=== PATIENT | male | born 1980 | race Caucasian/White ===

== ENCOUNTER 2017-03-17 18:32 | Emergency (ER) | payer OTHER ==
[~2017-03-17] VITALS: Ht 190.5 cm; Wt 123.8 kg
[~2017-03-17 18:32] MED LIST: Acetaminophen-1 EAC1 PO; CYCL10 PO; DIAZ5 PO; HYDACE10B PO; HYDACE5 PO; HYDMOR2 PO; IBUP600 PO; IBUP800 PO; MELO7.5 PO; METPRE4DP PO; NAPR220 PO; NAPR500 PO; NAPR500ERA PO; Naprosyn500 MG PO; OXYACE5T PO; PERM5TC TOP; PRED10 PO; RXOXYACE PO; Robaxin-750750 MG PO; TRAM50 PO; Ultram50 MG PO
[2017-03-17 19:18] LABS: BASOPHILS ABSOLUTE AUTO 0.06 K/mm3 (0.00-0.23); BASOPHILS PERCENT AUTO 1 % (0-2); EOSINOPHILS ABSOLUTE AUTO 0.16 K/mm3 (0.00-0.68); EOSINOPHILS PERCENT AUTO 2 % (0-6); Hematocrit 52.5 % (37.0-53.0); Hemoglobin 18.8 g/dL (13.5-17.5); IMMATURE GRAN ABSOLUTE AUTO 0.01 K/mm3 (0.00-0.10); IMMATURE GRAN PERCENT AUTO 0 % (0-1); LYMPHOCYTES ABSOLUTE AUTO 1.99 K/mm3 (0.84-5.20); LYMPHOCYTES PERCENT AUTO 23 % (21-46); MONOCYTES ABSOLUTE AUTO 0.71 K/mm3 (0.16-1.47); MONOCYTES PERCENT AUTO 8 % (4-13); Mean Corpuscular HGB Conc 35.8 g/dL (31.5-36.5); Mean Corpuscular Volume 89 fL (80-100); Mean Platelet Volume 10.1 fL (9.1-12.4); NEUTROPHILS ABSOLUTE AUTO 5.62 K/mm3 (1.96-9.15); NEUTROPHILS PERCENT AUTO 66 % (41-73); Platelet Count 193 K/mm3 (150-400); RDW Coefficient Variation 12.4 % (11.7-14.2); RDW Standard Deviation 40.5 fL (35.1-46.3); Red Blood Cell Count 5.88 M/mm3 (4.30-5.90); White Blood Cell Count 8.55 K/mm3 (4.00-11.30)
[2017-03-17 19:21] LABS: Alanine Aminotransfer (ALT/SGP 37 U/L (12-78); Albumin, Blood 4.3 g/dL (3.4-5.0); Albumin/Globulin Ratio 1.2 (0.8-1.8); Alk Phos 95 U/L (50-136); Anion Gap 7 mmol/L (6-16); Aspartate Aminotrans (AST/SGOT 29 U/L (12-37); Bilirubin, Total 1.3 mg/dL (0.1-1.0); Blood Urea Nitrogen 9 mg/dL (8-24); Bun/Creatinine Ratio 9.4 (12.0-20.0); CO2, Blood 26 mmol/L (21-32); Chloride, Blood 107 mmol/L (98-108); Creatinine, Blood 0.96 mg/dL (0.60-1.20); Globulin, Blood 3.6 g/dL (2.2-4.0); Glomerular Filtration Rate >60 (60-); Glucose, Blood 92 mg/dL (70-99); Potassium, Blood 3.6 mmol/L (3.5-5.5); Sodium, Blood 140 mmol/L (136-145); Total Protein, Blood 7.9 g/dL (6.4-8.2)
[2017-03-17 19:51] LABS: Source, Urine Clean Catch
[2017-03-17 19:54] LABS: Bilirubin, Urine Neg (Neg); Blood, Urine Neg (Neg); Glucose Qualitative, Urine Neg (Neg); Ketones, Urine Neg (Neg); Leukocyte Esterase, Urine 1+ (Neg); Nitrite, Urine Neg (Neg); Protein, Urine Neg (Neg); Urobilinogen, Urine NORM (Normal)
[2017-03-17 20:29] LABS: Appearance, Urine Clear (Clear); Color, Urine Yellow (P-Yellow)
[2017-03-17 20:30] LABS: Bacteria Rare /hpf; Red Blood Cells, Urine Not Seen /hpf (0-2); Squamous Epithelial Cells Rare /hpf (Few); White Blood Cells, Urine 0-2 /hpf (0-5)
[2017-03-17] MEDS ORDERED: PROM25 PO (20:43)
[2017-03-17] MEDS ORDERED: CHLO5 PO (20:43)
[2018-01-07] MEDS ORDERED: NAPR220 PO (08:32)
[2018-01-07] MEDS ORDERED: CYCL10 PO (08:32)
[2018-01-07] MEDS ORDERED: Aspirin EC81 MG PO (10:55)
[2018-01-18] MEDS ORDERED: LIDO700A20 TOP (16:51)
[2018-01-18] MEDS ORDERED: KETO10 PO (16:51)
[2018-01-26] MEDS ORDERED: Percocet 5-3251 EACH PO (10:27)
[2018-02-04] MEDS ORDERED: Ultram50 MG PO (18:54)
[2018-02-04] MEDS ORDERED: Robaxin500 MG PO (18:54)
[2018-02-21] MEDS ORDERED: HYDR1TAB94 PO (17:27)
== END 2017-03-17 21:20 | disposition home or self-care (01) ==
LOC: ER 18:32
PROVIDERS: Physician Assistant
DX: R10.31 Right lower quadrant pain (principal); F10.239 Alcohol dependence with withdrawal, unspecified; Z88.0 Allergy status to penicillin; F17.200 Nicotine dependence, unspecified, uncomplicated
CPT/HCPCS: 36415; 74177; 80053; 81001; 83690; 85025; 87086; 96374; 96375; 99284; J1885; J2060; Q9967

== ENCOUNTER → 2017-06-21 | Outpatient (CLI) | payer OTHER ==
[~2017-06-21] MED LIST changes: +CHLO5 PO; +PROM25 PO
[2017-06-21 13:36] LABS: BASOPHILS ABSOLUTE AUTO 0.08 K/mm3 (0.00-0.23); BASOPHILS PERCENT AUTO 1 % (0-2); EOSINOPHILS ABSOLUTE AUTO 0.18 K/mm3 (0.00-0.68); EOSINOPHILS PERCENT AUTO 2 % (0-6); Hematocrit 50.6 % (37.0-53.0); Hemoglobin 18.1 g/dL (13.5-17.5); IMMATURE GRAN ABSOLUTE AUTO 0.02 K/mm3 (0.00-0.10); IMMATURE GRAN PERCENT AUTO 0 % (0-1); LYMPHOCYTES ABSOLUTE AUTO 1.96 K/mm3 (0.84-5.20); LYMPHOCYTES PERCENT AUTO 25 % (21-46); MONOCYTES ABSOLUTE AUTO 0.55 K/mm3 (0.16-1.47); MONOCYTES PERCENT AUTO 7 % (4-13); Mean Corpuscular HGB 30.6 pg (26.0-34.0); Mean Corpuscular HGB Conc 35.8 g/dL (31.5-36.5); Mean Corpuscular Volume 86 fL (80-100); Mean Platelet Volume 10.1 fL (9.1-12.4); NEUTROPHILS ABSOLUTE AUTO 5.09 K/mm3 (1.96-9.15); NEUTROPHILS PERCENT AUTO 65 % (41-73); Platelet Count 234 K/mm3 (150-400); RDW Coefficient Variation 12.3 % (11.7-14.2); RDW Standard Deviation 37.8 fL (35.1-46.3); Red Blood Cell Count 5.92 M/mm3 (4.30-5.90); White Blood Cell Count 7.88 K/mm3 (4.00-11.30)
[2017-06-21 13:48] LABS: Alanine Aminotransfer (ALT/SGP 29 U/L (12-78); Albumin, Blood 4.3 g/dL (3.4-5.0); Albumin/Globulin Ratio 1.3 (0.8-1.8); Alk Phos 89 U/L (40-126); Anion Gap 8 mmol/L (6-16); Aspartate Aminotrans (AST/SGOT 14 U/L (12-37); Bilirubin, Total 0.7 mg/dL (0.1-1.0); Blood Urea Nitrogen 10 mg/dL (8-24); Bun/Creatinine Ratio 10.4 (12.0-20.0); CO2, Blood 27 mmol/L (21-32); Calcium, Blood 9.2 mg/dL (8.5-10.1); Chloride, Blood 103 mmol/L (98-108); Creatinine, Blood 0.96 mg/dL (0.60-1.20); Globulin, Blood 3.4 g/dL (2.2-4.0); Glomerular Filtration Rate >60 (60-); Glucose, Blood 88 mg/dL (70-99); Potassium, Blood 3.9 mmol/L (3.5-5.5); Sodium, Blood 138 mmol/L (136-145); Total Protein, Blood 7.7 g/dL (6.4-8.2); Troponin I <0.017 ng/mL (0.000-0.040)
== END | disposition home or self-care (01) ==
LOC: LAB SHORT 13:29 → LAB EV 13:29
PROVIDERS: Physician Assistant
DX: R07.9 Chest pain, unspecified (principal)
CPT/HCPCS: 80053; 84484; 85025; 85379

== ENCOUNTER 2017-08-15 21:14 | Emergency (ER) | payer OTHER ==
[~2017-08-15] VITALS: Ht 190.5 cm; Wt 122.5 kg
[2017-08-15] MEDS ORDERED: TRAZ150T57 PO (21:29)
[2017-08-15] MEDS ORDERED: IBUP800 PO (22:29)
[2017-08-15] MEDS ORDERED: Ultram50 MG PO (22:29)
== END 2017-08-15 22:38 | disposition home or self-care (01) ==
LOC: ER 21:14
DX: S91.311A Laceration without foreign body, right foot, initial encounter (principal); F17.200 Nicotine dependence, unspecified, uncomplicated; Z88.0 Allergy status to penicillin; W26.8XXA Contact with other sharp object(s), not elsewhere classified, initial encounter; Y93.01 Activity, walking, marching and hiking; Y92.828 Other wilderness area as the place of occurrence of the external cause
CPT/HCPCS: 99282

== ENCOUNTER → 2017-11-29 | Outpatient (CLI) | payer OTHER ==
[~2017-11-29] MED LIST changes: +TRAZ150T57 PO
[2017-11-29 08:51] LABS: BASOPHILS ABSOLUTE AUTO 0.07 K/mm3 (0.00-0.23); BASOPHILS PERCENT AUTO 1 % (0-2); EOSINOPHILS ABSOLUTE AUTO 0.23 K/mm3 (0.00-0.68); EOSINOPHILS PERCENT AUTO 3 % (0-6); Hematocrit 48.1 % (37.0-53.0); IMMATURE GRAN ABSOLUTE AUTO 0.03 K/mm3 (0.00-0.10); IMMATURE GRAN PERCENT AUTO 0 % (0-1); LYMPHOCYTES ABSOLUTE AUTO 1.63 K/mm3 (0.84-5.20); LYMPHOCYTES PERCENT AUTO 19 % (21-46); MONOCYTES ABSOLUTE AUTO 0.68 K/mm3 (0.16-1.47); MONOCYTES PERCENT AUTO 8 % (4-13); Mean Corpuscular HGB 30.3 pg (26.0-34.0); Mean Corpuscular HGB Conc 35.3 g/dL (31.5-36.5); Mean Corpuscular Volume 86 fL (80-100); Mean Platelet Volume 10.2 fL (9.1-12.4); NEUTROPHILS ABSOLUTE AUTO 6.12 K/mm3 (1.96-9.15); NEUTROPHILS PERCENT AUTO 70 % (41-73); Platelet Count 203 K/mm3 (150-400); Red Blood Cell Count 5.61 M/mm3 (4.30-5.90); White Blood Cell Count 8.76 K/mm3 (4.00-11.30)
[2017-11-29 09:07] LABS: Alanine Aminotransfer (ALT/SGP 20 U/L (12-78); Albumin/Globulin Ratio 1.3 (0.8-1.8); Alk Phos 86 U/L (40-126); Anion Gap 10 mmol/L (6-16); Aspartate Aminotrans (AST/SGOT 14 U/L (12-37); Blood Urea Nitrogen 13 mg/dL (8-24); Bun/Creatinine Ratio 11.7 (12.0-20.0); CO2, Blood 25 mmol/L (21-32); Chloride, Blood 105 mmol/L (98-108); Creatinine, Blood 1.11 mg/dL (0.60-1.20); Globulin, Blood 3.1 g/dL (2.2-4.0); Glomerular Filtration Rate >60 (60-); Glucose, Blood 81 mg/dL (70-99); Potassium, Blood 3.4 mmol/L (3.5-5.5); Sodium, Blood 140 mmol/L (136-145); Total Protein, Blood 7.1 g/dL (6.4-8.2)
== END | disposition home or self-care (01) ==
LOC: LAB EV 08:47 → LAB SHORT 08:47
PROVIDERS: Physician Assistant Medical
DX: R11.2 Nausea with vomiting, unspecified (principal)
CPT/HCPCS: 80053; 85025

== ENCOUNTER 2017-12-13 11:22 | Emergency (ER) | payer OTHER ==
[~2017-12-13] VITALS: Ht 190.5 cm; Wt 115.7 kg
[2017-12-13 12:04] LABS: BASOPHILS ABSOLUTE AUTO 0.08 K/mm3 (0.00-0.23); BASOPHILS PERCENT AUTO 1 % (0-2); EOSINOPHILS ABSOLUTE AUTO 0.14 K/mm3 (0.00-0.68); EOSINOPHILS PERCENT AUTO 1 % (0-6); Hematocrit 49.7 % (37.0-53.0); Hemoglobin 17.3 g/dL (13.5-17.5); IMMATURE GRAN ABSOLUTE AUTO 0.02 K/mm3 (0.00-0.10); IMMATURE GRAN PERCENT AUTO 0 % (0-1); LYMPHOCYTES PERCENT AUTO 19 % (21-46); MONOCYTES ABSOLUTE AUTO 0.62 K/mm3 (0.16-1.47); MONOCYTES PERCENT AUTO 6 % (4-13); Mean Corpuscular HGB 30.1 pg (26.0-34.0); Mean Corpuscular HGB Conc 34.8 g/dL (31.5-36.5); Mean Corpuscular Volume 86 fL (80-100); Mean Platelet Volume 9.5 fL (9.1-12.4); NEUTROPHILS ABSOLUTE AUTO 7.44 K/mm3 (1.96-9.15); NEUTROPHILS PERCENT AUTO 73 % (41-73); Platelet Count 252 K/mm3 (150-400); RDW Coefficient Variation 12.8 % (11.7-14.2); RDW Standard Deviation 39.7 fL (35.1-46.3); Red Blood Cell Count 5.75 M/mm3 (4.30-5.90)
[2017-12-13 12:26] LABS: Alanine Aminotransfer (ALT/SGP 22 U/L (12-78); Albumin, Blood 3.9 g/dL (3.4-5.0); Albumin/Globulin Ratio 1.3 (0.8-1.8); Alk Phos 85 U/L (50-136); Anion Gap 8 mmol/L (6-16); Aspartate Aminotrans (AST/SGOT 9 U/L (12-37); Blood Urea Nitrogen 7 mg/dL (8-24); Bun/Creatinine Ratio 6.2 (12.0-20.0); CO2, Blood 24 mmol/L (21-32); Calcium, Blood 8.8 mg/dL (8.5-10.1); Chloride, Blood 108 mmol/L (98-108); Creatinine, Blood 1.12 mg/dL (0.60-1.20); Globulin, Blood 3.1 g/dL (2.2-4.0); Glomerular Filtration Rate >60 (60-); Glucose, Blood 55 mg/dL (70-99); Potassium, Blood 3.4 mmol/L (3.5-5.5); Sodium, Blood 140 mmol/L (136-145); Troponin I <0.015 ng/mL (0.000-0.040)
[2017-12-13 12:32] LABS: International Normalized Ratio 1.09; Prothrombin Time Results 11.2 Sec (9.7-11.5)
[2017-12-13] MEDS ORDERED: IBUP800 PO (12:55)
[2017-12-13] MEDS ORDERED: Robaxin500 MG PO (12:55)
== END 2017-12-13 13:29 | disposition home or self-care (01) ==
LOC: ER 11:22
PROVIDERS: Physician Assistant
DX: R07.89 Other chest pain (principal); F17.210 Nicotine dependence, cigarettes, uncomplicated
CPT/HCPCS: 71046; 80053; 83690; 84484; 85025; 85379; 85610; 93005; 93010; 96374; 99284-25; J2270

== ENCOUNTER → 2018-03-01 | Outpatient (CLI) | payer OTHER ==
[~2018-03-01] MED LIST changes: +Aspirin EC81 MG PO; +HYDR1TAB94 PO; +KETO10 PO; +LIDO700A20 TOP; +Percocet 5-3251 EACH PO; +Robaxin500 MG PO
[2018-03-01 19:38] LABS: Blood Urea Nitrogen 9 mg/dL (8-24); Creatinine, Blood 0.93 mg/dL (0.60-1.20); Glomerular Filtration Rate >60 (60-)
== END | disposition home or self-care (01) ==
LOC: LAB 17:57 → LAB SHORT 17:57
DX: M62.830 Muscle spasm of back (principal)
CPT/HCPCS: 82565; 84520

== ENCOUNTER 2018-03-08 18:12 | Emergency (ER) | payer OTHER ==
[~2018-03-08] VITALS: Ht 190.5 cm; Wt 114.8 kg
== END 2018-03-08 20:02 | disposition home or self-care (01) ==
LOC: ER 18:12
DX: M51.36 Other intervertebral disc degeneration, lumbar region (principal); M50.30 Other cervical disc degeneration, unspecified cervical region; F17.210 Nicotine dependence, cigarettes, uncomplicated; Z88.0 Allergy status to penicillin
CPT/HCPCS: 96372; 99283-25; J1170; J1885

== ENCOUNTER 2018-04-08 16:45 | Emergency (ER) | payer OTHER ==
[~2018-04-08] VITALS: Ht 190.5 cm; Wt 117.9 kg
[2018-04-08] MEDS ORDERED: Norco 5-325 Ta1 EACH PO (17:11)
== END 2018-04-08 17:28 | disposition home or self-care (01) ==
LOC: ER 16:45
DX: G89.29 Other chronic pain (principal); M54.5 Low back pain; Z88.0 Allergy status to penicillin; Z79.899 Other long term (current) drug therapy; F17.210 Nicotine dependence, cigarettes, uncomplicated
CPT/HCPCS: 99281

== ENCOUNTER 2018-09-18 00:33 | Emergency (ER) | payer OTHER ==
[~2018-09-18] VITALS: Ht 190.5 cm; Wt 122.5 kg
[~2018-09-18 00:33] MED LIST changes: +Norco 5-325 Ta1 EACH PO
[2018-09-18] MEDS ORDERED: PARO10 PO (01:00)
[2018-09-18 01:02] LABS: Source, Urine Clean Catch
[2018-09-18] MEDS ORDERED: AMLO10 PO (01:02)
[2018-09-18 01:05] LABS: Bilirubin, Urine Neg (Neg); Blood, Urine Neg (Neg); Glucose Qualitative, Urine Neg (Neg); Ketones, Urine Neg (Neg); Leukocyte Esterase, Urine Neg (Neg); Nitrite, Urine Neg (Neg); Protein, Urine Neg (Neg); Specific Gravity, Urine 1.005 (1.003-1.022); Urobilinogen, Urine NORM (Normal)
[2018-09-18 01:06] LABS: Appearance, Urine Clear (Clear); Color, Urine Yellow (P-Yellow)
== END 2018-09-18 01:48 | disposition home or self-care (01) ==
LOC: ER 00:33
PROVIDERS: Physician Assistant
DX: R30.0 Dysuria (principal); Z88.0 Allergy status to penicillin; Z79.899 Other long term (current) drug therapy; F17.210 Nicotine dependence, cigarettes, uncomplicated
CPT/HCPCS: 81003; 99283

== ENCOUNTER 2019-01-30 05:42 | Emergency (ER) | payer OTHER ==
[~2019-01-30] VITALS: Ht 190.5 cm; Wt 117.9 kg
[~2019-01-30 05:42] MED LIST changes: +AMLO10 PO; +PARO10 PO
== END 2019-01-30 06:42 | disposition home or self-care (01) ==
LOC: ER 05:42
DX: A08.4 Viral intestinal infection, unspecified (principal); F17.210 Nicotine dependence, cigarettes, uncomplicated; Z88.0 Allergy status to penicillin; Z79.899 Other long term (current) drug therapy
CPT/HCPCS: 99282

== ENCOUNTER 2019-08-09 10:26 | Inpatient (IN) | payer OTHER ==
[~2019-08-09] VITALS: Ht 297.2 cm; Wt 127.5 kg
[2019-08-09 11:43] LABS: BASOPHILS ABSOLUTE AUTO 0.08 K/mm3 (0.00-0.23); BASOPHILS PERCENT AUTO 1 % (0-2); EOSINOPHILS ABSOLUTE AUTO 0.03 K/mm3 (0.00-0.68); EOSINOPHILS PERCENT AUTO 0 % (0-6); Hematocrit 54.2 % (37.0-53.0); Hemoglobin 18.9 g/dL (13.5-17.5); IMMATURE GRAN ABSOLUTE AUTO 0.07 K/mm3 (0.00-0.10); IMMATURE GRAN PERCENT AUTO 1 % (0-1); LYMPHOCYTES ABSOLUTE AUTO 1.34 K/mm3 (0.84-5.20); LYMPHOCYTES PERCENT AUTO 12 % (21-46); MONOCYTES ABSOLUTE AUTO 0.68 K/mm3 (0.16-1.47); MONOCYTES PERCENT AUTO 6 % (4-13); Mean Corpuscular HGB Conc 34.9 g/dL (31.5-36.5); Mean Corpuscular Volume 86 fL (80-100); NEUTROPHILS ABSOLUTE AUTO 9.14 K/mm3 (1.96-9.15); NEUTROPHILS PERCENT AUTO 81 % (41-73); Platelet Count 271 K/mm3 (150-400); RDW Coefficient Variation 12.3 % (11.7-14.2); RDW Standard Deviation 38.5 fL (35.1-46.3); White Blood Cell Count 11.34 K/mm3 (4.00-11.30)
[2019-08-09 12:13] LABS: Alanine Aminotransfer (ALT/SGP 21 U/L (12-78); Albumin, Blood 4.2 g/dL (3.4-5.0); Albumin/Globulin Ratio 1.1 (0.8-1.8); Alk Phos 99 U/L (50-136); Anion Gap 10 mmol/L (6-16); Aspartate Aminotrans (AST/SGOT 15 U/L (12-37); Bilirubin, Total 0.9 mg/dL (0.1-1.0); Blood Urea Nitrogen 15 mg/dL (8-24); Bun/Creatinine Ratio 15.9 (12.0-20.0); CO2, Blood 23 mmol/L (21-32); Chloride, Blood 104 mmol/L (98-108); Creatinine, Blood 0.95 mg/dL (0.60-1.20); Ethanol (Alcohol), Blood, Med <3 mg/dL; Globulin, Blood 3.7 g/dL (2.2-4.0); Glomerular Filtration Rate >60 (60-); Glucose, Blood 121 mg/dL (70-99); Magnesium, Blood 2.2 mg/dL (1.6-2.4); Potassium, Blood 3.4 mmol/L (3.5-5.5); Salicylate 3.3 mg/dL (2.8-20.0); Sodium, Blood 137 mmol/L (136-145); Total Protein, Blood 7.9 g/dL (6.4-8.2)
[2019-08-09 12:18] LABS: Acetaminophen, Random <2.0 ug/mL (10.0-30.0)
[2019-08-09 13:10] LABS: Source, Urine Clean Catch
[2019-08-09 13:14] LABS: Bilirubin, Urine Neg (Neg); Blood, Urine Neg (Neg); Glucose Qualitative, Urine Neg (Neg); Ketones, Urine Neg (Neg); Leukocyte Esterase, Urine Neg (Neg); Nitrite, Urine Neg (Neg); Protein, Urine Neg (Neg); Urobilinogen, Urine 1+ (Normal)
[2019-08-09 13:21] LABS: Appearance, Urine Clear (Clear); Color, Urine Yellow (P-Yellow)
[2019-08-09 13:37] LABS: U Amphetamine Screen Not Detected; U Barbituate Screen Not Detected; U Benzodiazapine Screen Not Detected; U Buprenorphine Screen Not Detected; U Cannabinoids Screen Not Detected; U Cocaine Screen Not Detected; U Methadone Screen Not Detected; U Methamphetamine Screen Not Detected; U Opiates Screen Not Detected; U Oxycodone Screen Not Detected; U Phencyclidine Screen Not Detected; U Propoxyphene Screen Not Detected
[2019-08-09 23:42] LABS: Source, Urine Clean Catch
[2019-08-09 23:48] LABS: Bilirubin, Urine Neg (Neg); Blood, Urine Neg (Neg); Glucose Qualitative, Urine Neg (Neg); Ketones, Urine Neg (Neg); Leukocyte Esterase, Urine 1+ (Neg); Nitrite, Urine Neg (Neg); Protein, Urine Neg (Neg); Urobilinogen, Urine NORM (Normal); pH, Urine 6.5 (5.0-8.0)
[2019-08-10 00:02] LABS: Appearance, Urine Clear (Clear); Color, Urine Yellow (P-Yellow)
[2019-08-10 00:05] LABS: Bacteria Few /hpf; Red Blood Cells, Urine Not Seen /hpf (0-2); Squamous Epithelial Cells Few /hpf (Few)
--- NOTE | 2019-08-10 05:05 | NUR ---
SHIFT SUMMARY- PT. NEW ADMIT FROM ED WITH MODERATE SI PRECAUTIONS AND URINARY RETENTION. PT. A&O, DENIES ANY PAIN, C/O DISCOMFORT DUE TO TEMPLETON CATHETER. PT. APPEARED TO HAVE RESTED COMFORTABLY IN BED. NO APPARENT DISTRESS NOTED. PT. ON CAMERA. CALL LIGHT WITHIN REACH AND SIDE RAILS UP X2. WILL CONT TO MONITOR.
[2019-08-10 05:23] LABS: BASOPHILS ABSOLUTE AUTO 0.07 K/mm3 (0.00-0.23); BASOPHILS PERCENT AUTO 1 % (0-2); EOSINOPHILS ABSOLUTE AUTO 0.11 K/mm3 (0.00-0.68); EOSINOPHILS PERCENT AUTO 1 % (0-6); Hematocrit 52.5 % (37.0-53.0); Hemoglobin 17.9 g/dL (13.5-17.5); IMMATURE GRAN ABSOLUTE AUTO 0.03 K/mm3 (0.00-0.10); IMMATURE GRAN PERCENT AUTO 0 % (0-1); LYMPHOCYTES ABSOLUTE AUTO 1.68 K/mm3 (0.84-5.20); LYMPHOCYTES PERCENT AUTO 16 % (21-46); MONOCYTES ABSOLUTE AUTO 0.99 K/mm3 (0.16-1.47); MONOCYTES PERCENT AUTO 9 % (4-13); Mean Corpuscular HGB 29.8 pg (26.0-34.0); Mean Corpuscular HGB Conc 34.1 g/dL (31.5-36.5); Mean Corpuscular Volume 88 fL (80-100); Mean Platelet Volume 10.1 fL (9.1-12.4); NEUTROPHILS ABSOLUTE AUTO 7.96 K/mm3 (1.96-9.15); NEUTROPHILS PERCENT AUTO 74 % (41-73); Platelet Count 234 K/mm3 (150-400); RDW Coefficient Variation 12.2 % (11.7-14.2); RDW Standard Deviation 39.4 fL (35.1-46.3); White Blood Cell Count 10.84 K/mm3 (4.00-11.30)
[2019-08-10 05:49] LABS: Alanine Aminotransfer (ALT/SGP 19 U/L (12-78); Albumin, Blood 3.7 g/dL (3.4-5.0); Albumin/Globulin Ratio 1.2 (0.8-1.8); Alk Phos 92 U/L (50-136); Anion Gap 6 mmol/L (6-16); Aspartate Aminotrans (AST/SGOT 9 U/L (12-37); Bilirubin, Total 0.8 mg/dL (0.1-1.0); Blood Urea Nitrogen 16 mg/dL (8-24); Bun/Creatinine Ratio 15.7 (12.0-20.0); CO2, Blood 28 mmol/L (21-32); Calcium, Blood 8.7 mg/dL (8.5-10.1); Chloride, Blood 102 mmol/L (98-108); Creatinine, Blood 1.02 mg/dL (0.60-1.20); Globulin, Blood 3.2 g/dL (2.2-4.0); Glomerular Filtration Rate >60 (60-); Glucose, Blood 107 mg/dL (70-99); Potassium, Blood 3.3 mmol/L (3.5-5.5); Sodium, Blood 136 mmol/L (136-145); Total Protein, Blood 6.9 g/dL (6.4-8.2)
--- NOTE | 2019-08-10 10:14 | NUR ---
I'm in the role of CNA2 student today.
--- NOTE | 2019-08-10 16:56 | NUR ---
PATIENT BEHAVIOR ESCILATED AND HE TOOK HIS WIFES PHONE THEN KEPT YELLING, HE TRIED TO RIP THE COMPUTER OFF OF THE WALL HE THEN BROKE THE SECURE DOORS BY RAMMING THEM WITH HIS SHOULDER UNTIL IT OPEN THEN LEFT THE SECURE UNIT AFTER SCREAMING AT THIS NURSE THAT I WAS LYING AND HE WAS MAN HANDLING HIS IN THE ROOM. A [facility] WAS CALLED AND SECURITY AND THE NURSING PATIENT SERVICES TECHNICIAN WERE CALLED WHEN THE PATIENT LEFT. THEY ESCORTED HIM OUT OF THE BUILDING AND THE POLICE WERE CALLED. THE PATIENT LEFT THE UNIT AT 1635.
--- NOTE | 2019-08-10 18:00 | NUR ---
BEHAVIOR PT CONTINUES TO ESCALATE WITH AGITATION AND AGGRSSIVE BEHAVIOR. PT IS YELLING, KICKING, AND ATTEMPTING TO PULL OUT OF TAT WRIST RESTRAINTS. SECURITY NEEDED TO ASSIST WITH PLACEMENT OF TAT RESTRAINTS X4 EXTREMITIES. FORMS ANALYST CALLED DR. KIRKLAND TO UPDATE TO PT STATUS AND OBTAIN ORDERS FOR MEDS AND RESTRAINTS. VITAL SIGNS HAVE REMAINED STABLE SINCE ARRIVAL TO ICU. PT REMAINS IN BLUE PAPER SCRUBS. PT IS AWARE OF 2MD HOLD. POLICE RETURNED TO UNIT DUE TO ESCALATION OF BEHAVIOR. PT COOPERATIVE WHEN POLICE AT BEDSIDE. WILL CONTINUE TO MONITOR AND MEDICATE PER ORDERS.
--- NOTE | 2019-08-10 18:00 | NUR ---
PT ADMITTED TO ICU FROM MEDICAL FLOOR WITH POLICE AND SECURITY IN ATTENDANCE. PT AMBULATED INTO UNIT, ABLE TO BE COOPERATIVE INITIALLY WITH SITTING ON BED, VERBALLY AGGRESSIVE. BEHAVIOR ESCALATED WHEN ATTEMPTING IV ACCESS. UNABLE TO VERBALLY REDIRECT UNSAFE BEHAVIOR, VIOLENTLY TRYING TO GET OOB. SECURITY ASSIST WITH 4 POINT TOUGH CUFFS. IM XYPREXA GIVEN. MONITOR ON, HYPERTENSIVE, TACHYCARDIC.
--- NOTE | 2019-08-10 18:12 | NUR ---
PATIENT TRANSFERRED TO ICU, REPORT GIVEN TO ICU NURSE.
--- NOTE | 2019-08-10 18:50 | NUR ---
UPDATE TO Nawaf DELEON VIBRATORY PILE DRIVER HERE-UPDATED. PT KANU KICKING AT BED
--- NOTE | 2019-08-10 19:30 | NUR ---
PT RESTING IN BED WITH 4 POINT TAT. SITTER PRESENT FOR 1:1 OBSERVATION. ALSO ON CAMERA. PRECEDEX STARTED AND PT IS BECOMING MORE DROWSY. NON SENSICAL SPEECH. PT IS IN PAPER SCRUBS. DIAPHORETIC. CONTINUING TO CLOSELY MONITOR.
[2019-08-10 19:42] LABS: Source, Urine Catheter
[2019-08-10 19:44] LABS: Bilirubin, Urine Neg (Neg); Blood, Urine 4+ (Neg); Glucose Qualitative, Urine Neg (Neg); Ketones, Urine Neg (Neg); Leukocyte Esterase, Urine 1+ (Neg); Nitrite, Urine Neg (Neg); Protein, Urine Neg (Neg); Urobilinogen, Urine NORM (Normal)
[2019-08-10 19:53] LABS: Appearance, Urine Clear (Clear); Color, Urine Yellow (P-Yellow)
[2019-08-10 19:54] LABS: Bacteria Few /hpf; Squamous Epithelial Cells Few /hpf (Few)
--- NOTE | 2019-08-10 22:00 | NUR ---
PT IS MORE SEDATED NOW WITH PRECEDEX GTT AT 0.3MCG/KG/MIN. WILL AROUSE TO PAINFUL STIMULI. REMAINS IN 4 POINT TAT BUT NO LONGER IN VIOLENT RESTRANT CRITERIA. SITTER STILL PRESENT FOR HIGH RISK BEHAVIOR.
--- NOTE | 2019-08-11 06:30 | NUR ---
SUMMARY PT RESTING IN BED ON PRECEDEX GTT AT 0.3MCG/KG/MIN. PT SLEPT MOST OF THE NIGHT UNTIL 0400. WHEN HE WAS AWAKE HE WAS COOPERATIVE WITH CARE. PT ASKS "WHERE AM I" AND "WHERE'S MY ". REORIENTED AND LET PT KNOW HIS WAS UPDATED ON STATUS OVER THE PHONE. PT ALSO C/O DISCOMFORT IN ARMS WHEN AWAKE. EDUCATED PT THAT HE WAS PULLING AGAINST RESTRAINTS DURING DAY SHIFT. PT ABLE TO FALL BACK TO SLEEP EASILY. PT TOLERATED 2ND IV START. ABLE TO DOWNGRADE RESTRAINTS TO BILAT SOFT WRIST FROM TAT X4. NO SIGN OF DISTRESS. 1:1 SITTER AND CAMERAS WATCHING PT.
--- NOTE | 2019-08-11 07:52 | NUR ---
ASSUMED CARE RECEIVED REPORT FROM WINSTON BAIRD. PT IS LYING IN BED SUPINE (HOB > 30 DEGREES) ASLEEP. HE IS SEDATED. BUT VENTILATING ADEQUETLY, SPO2 97%, RR ~14-16. HE HAS BILATERAL SWB RESTRAINTS, SECURED TO BED. HE HAS A PATENT TEMPLETON DRAINING DARK YELLOW URINE. THE BED ALARM IS ON. BED LOW AND LOCKED.
--- NOTE | 2019-08-11 13:30 | NUR ---
UPDATE PT IS NOW AWAKE. HE IS ALERT, CALM, AND COOPERATIVE - ALTHOUGH LETHRGIC/FATIGUED. HE IS ORIENTED TO SELF, SURROUNDINGS AND SOMEWHAT OF THE SITUATION. HE IS ASKING ABOUT SOMETHING TO DRINK AND EAT. PRECEDEX IS DOWN TO 0.2 MCG/KG/HR. BP REMAINS BOARDERLINE. DR. KIRKLAND IS ORDERING A FLUID BOLUS, THAN MAINTNANCE FLUIDS. EXTREMITIES ARE WARMING UP AFTER BEING SLIGHTLY COOL. HE IS MAKING URINE. AND DENIES CP, SOB, AND NAUSEA. BED LOW AND LOCKED. RESTRAINTS HAVE BEEN REMOVED FOR NOW. HE IS UNDERSTANDING OF THE SITUATION AND IS CALM. CALL LIGHT IS WITHIN REACH.
--- NOTE | 2019-08-11 15:20 | NUR ---
UPDATE/DISCHARGE 1100 - CB, INSULIN GTTP TURNED OFF 1130 - LUNCH SERVED 59g OF CARBS - COVERED WITH 1 UNIT PER 7g = 8 UNITS LISPRO GIVEN 1353 - CB, SLIDING SCALE = 7 UNITS OF SLIDING SCALE LISPRO GIVEN 1430 - DISCHARGED PT TAKES CARB COVERAGE WITH HIS MEALS, AND THEN RECHECKS SUGAR ~2 HOURS POST MEAL AND DOES SLIDING SCALE COVERAGE THEN. DECIDED TO HOLD THE SLIDING SCALE AT 1130 DUE TO SUGAR BEING ONLY 164, AND THE FACT HE WAS ALREADY GETTING 8 UNITS FOR THE LUNCH/CARB COVERAGE FOR THE 59g OF CARBS. AT TIME OF DISCHARGE PT STATED HE "...FEELS GOOD". DENIES NAUSEA, CHEST/ABD PAIN. HR, BP, O2 SATS, AND RR WNL. DR. DENT ADDRESSED HIS CONCERNS FOR HIS YEAST INFECTION PRIOR TO DISCHARGE WELL.
--- NOTE | 2019-08-11 16:24 | NUR ---
UPDATE THE FLUID BOLUS AND MAINTENANCE INFUSION HAS IMPROVED BP. THERE WERE A FEW LOW ONES, THAT HAVE BEEN POSITIONAL. I CHANGED TO A FOREARM CUFF AND IT SEEMED TO IMPROVE. MAP REMAINS ABOVE 60.
--- NOTE | 2019-08-11 17:32 | NUR ---
UPDATE PT REMAINS CALM AND COOPERATIVE, IN AND OUT OF SLEEP. WHEN AWAKE HE IS LETHARGIC, FATIGUED AND NOT ABLE TO GIVE DETAILED ANSWERS TO QUESTIONS. BUT HE SEEMS TO COMPREHEND WHAT I AM SAYING TO HIM, AND ANSWERS APPROPRIATELY. HE REMAINS ON PRECEDEX AT 0.2 MCG/KG/HR. HE DENIES PAIN, SOB, AND NAUSEA. HE HELPS WITH TURNS A LITTLE NOW.
--- NOTE | 2019-08-11 18:41 | NUR ---
SUICIDE REASSESSMENT PT NOT ABLE TO ANSWER THESE QUESTIONS FOR ME TODAY. HE SEEMS TO BE TOO LETHARGIC AND FATIGUED TO HOLD ANY CONVERSATION. PT WILL NOT MAINTAIN FOCUS FOR ME FOR TOO LONG.
--- NOTE | 2019-08-11 18:44 | NUR ---
SHIFT SUMMARY NO MAJOR EVENTS TODAY. PT IN AND OUT OF SLEEP. CURRENTLY INFUSING IS PRECEDEX AT 0.2 MCG/KG/HOUR, AND LR AT 100 ML/HR. HE IS ORIENTED TO SELF, SURROUNDINGS AND SOMEWHAT OF SITUATION. HE HAS MADE APPROPRIATE STATEMENTS, BUT HAS NOT BEEN ABLE TO MAINTAIN FOCUS FOR TOO LONG WITHOUT FALLING BACK ASLEEP OR JUST CLOSING HIS EYES. HIS HAS BEEN UPDATED THREE TIMES TODAY, WE DISCUSSED THE PLAN OF CARE. PT HAS MADE ADEQUATE URINE OUTPUT (600ML), HAS WARM EXTREMETIES, AND 2+ PULSES. DESPITE A FEW LOW BLOOD PRESSURES, THAT MAY HAVE BEEN POSITIONAL HE WAS MOVING AROUND, HE SEEMS TO BE PERFUSING WELL. HR HAS BEEN LOW 50'S ALL DAY, BUT IS NOW AROUND 57-64. BREATH SOUNDS ARE MOSTLY CLEAR, A LITTLE COARSE ON EXPIRATION, BUT HAS CLEARED UP AFTER HE COUGHED. HE REMAINS ON ROOM AIR, WITH SATS IN THE HIGH 90's. BED LOW AND LOCKED. CALL LIGHT WITHIN REACH.
--- NOTE | 2019-08-11 19:33 | NUR ---
ASSUMED CARE NOTE: ASSUMED CARE OF PT AT 1900, RECEVIED REPORT FROM MILLI MONTERO. PT IS ALERT AND ORIENTEDX3. PT HAS A FLAT AFFECT IS WITHDRAWN. HE IS ABLE TO RECALL HOW HE CAME TO THE ICU, HOWEVER HAS NO RECOLLECTION TO HIS FIRST INITAL ADMISSION TO THE HOSPITAL WAS ON MEDICAL FLOOR. SUICIDE ASSESSMENT WAS DONE, PT CLAIMS HE HAS THOUGHT OF A PLAN TO COMMIT SUICIDE, HOWEVER REFUSES TO TALK ABOUT IT. PT IS ON RA WITH SPO2 ABOVE 90% PT IS IN NSR WITH HR IN THE 70'S. BOWEL TONES HEARD IN ALL FOUR QUADRANTS. TEMPLETON IN PLACE, WITH YELLOW CLEAR URINE NOTED. BROWN DISCHARGE NOTED TO THE [facility] OPENING SITE, WILL PROVIDE CATH CARE. PT WAS ABLE TO EAT DINNER. 1:1 SITTER OUTSIDE DOOR. WILL CONTINUE TO MONITOR PT T/O SHIFT
--- NOTE | 2019-08-11 23:04 | NUR ---
UPDATE: PT MOVING AROUND IN BED RESTLESS. ASKED PT IF HE WAS ANXIOUS, HE SAID " I AM GETTING THERE" . PT WAS OFFERED ATIVAN TO HELP WITH THE ANXIETY AND PT REFUSED. STATED " I WILL GET OVER IT AND BE FINE" WILL CONTINUE TO MONITOR PT.
--- NOTE | 2019-08-11 23:28 | NUR ---
UPDATED DEN PT'S . WILL UPDATE ON PT'S STATUS IF ANYTHING CHANGES
[2019-08-12 03:44] LABS: Anion Gap 7 mmol/L (6-16); Blood Urea Nitrogen 18 mg/dL (8-24); Bun/Creatinine Ratio 22.5 (12.0-20.0); CO2, Blood 26 mmol/L (21-32); CPK Creatine Kinase 258 U/L (39-308); Calcium, Blood 8.1 mg/dL (8.5-10.1); Chloride, Blood 105 mmol/L (98-108); Glomerular Filtration Rate >60 (60-); Glucose, Blood 90 mg/dL (70-99); Potassium, Blood 3.1 mmol/L (3.5-5.5); Sodium, Blood 138 mmol/L (136-145)
--- NOTE | 2019-08-12 03:55 | NUR ---
PT REACHING FOR LINES AND HEART MONITOR CORD. WHEN ASKED WHY HE WAS REACHING FOR CORDS PT CLOSED EYES AND REFUSED TO ANSWER. WHEN ASKED AGAIN, PT STATED " I JUST FELT LIKE DOING IT" PT WAS THEN ASKED WHAT HE PLANNED ON DOING WITH THE THE CORD, HE REFUSED TO ANSWER. PT WAS THEN ASKED IF HE PLANNED TO HURT HIMSELF WITH THE CORDS HE REPLIED " NO" 1:[address] WILL CONTINUE TO MONITOR.
--- NOTE | 2019-08-12 04:31 | NUR ---
UPDATE: TEMPLETON WAS REMOVED. PT SCREAMED AND CLENCHED FIST AND SAT UP IN BED DURING CATH REMOVAL. PT WAS GIVEN 2MG OF ATIVAN FOR AGITATION. PT WAS THEN ABLE TO CALM DOWN. BLADDER SCAN WILL BE PERFORMED AT 1000 ON DAY SHIFT IF PT IS HAS NOT BEEN ABLE TO VOID. URINAL AT BEDSIDE. 1:[address]
--- NOTE | 2019-08-12 05:11 | NUR ---
UPDATE: PT STATES HE IS HAVING HALLUCINATIONS. STATES HE SEES AND HEARS SOMEONE ELSE IN THE ROOM. PT IS ANXIOUS, ATIVAN GIVEN PER EMAR. PT STATES HIS R FOREARM HURTS WHEN ROTATED, WILL PASS ALONG ON REPORT.
--- NOTE | 2019-08-12 05:57 | NUR ---
SHIFT SUMMARY: SEE PREVIOUS NOTES. PT IS ALERT AND ORIENTED TO PLACE, YEAR, AND FOLLOWING DIRECTIONS. PT IS HAVING VISUAL AND AUDITORY HALLUCINATIONS. STATING HE CAN HEAR AND SEE PEOPLE IN THE ROOM. PT'S TEMPLETON WAS REMOVED AT 0400, PT HAS NOT YET VOIDED, STATES HE DOES NOT FEEL THE URGE TO URINATE. PT HAS BEEN HAVING TROUBLE SLEEPING. PT BECAME AGITATED AT ONE POINT DURING THE SHIFT, ATIVAN GIVEN PER EMAR. VSS. PT CONTINUES TO BE ON RA, WITH SPO2 ABOVE 95% PT HAS BEEN IN SINUS RHYTHM WITH HR IN THE 80'S. PT HAS BEEN DIAPHORETIC, REFUSED A BEDBATH. 1:[address] WILL CONTINUE TO MONITOR PT UNTIL REPORT IS GIVEN TO ONCOMING SHIFT.
--- NOTE | 2019-08-12 07:21 | NUR ---
ASSUMED CARE RECEIEVED REPORT FROM WINSTON FERRERA. PT IS SITTING UP, ALERT, IN BED IN FOWLERS, WATCHING TV. HE HAS STABLE VITALS ON ROOM AIR. HE IS IN SINUS RHYTHM. HE SEEMS TO BE IN NO DISTRESS AT THE MOMENT. DENIES SOB, CP, AND NAUSEA. BED IS LOW AND LOCKED. CALL LIGHT WITHIN REACH.
--- NOTE | 2019-08-12 08:05 | NUR ---
PT AMBULATED INDEPENDENTLY TO SHOWER, WITH SUPERVISION. HE HAS A STEADY GAIT.
--- NOTE | 2019-08-12 08:11 | NUR ---
HE SEEMES CLOSED OFF REGARDING HIS SUICIDE ATTEMPT, AND OF ANY SUICIDAL IDEATIONS. I AM NOT SURE IF HE IS TRUTHFUL WHEN HE DENIES SUICIDAL IDEATIONS. BUT HE DOES SEEM MORE ALERT TODAY, ALONG WITH BEING CALM AND COOPERATIVE. HE IS MAKING MORE EYE CONTACT WELL TODAY, AND TALKING MORE.
--- NOTE | 2019-08-12 08:46 | NUR ---
UPDATE THE SITTER, OSVALDO, REPORTS TO ME THAT THE PT IS TALKING TO HIMSELF, AND SEEMS TO STARE AT THE CORNER WHEN HE DOES. I WAS IN ROOM SCANNING MEDS, I COULD HERE HIM WHISPERING AND WHEN I LOOKED AT HIM HE WAS STARING IN THE CORNER, LIKE SHE REPORTED. SO IT APPEARS HE IS HAVING AUDITORY AND VISUAL HALLUCINATIONS. WHEN I GAVE HIM HIS LOVENOX SHOT - HE GRIMACED, EXCLAIMED A CURSE WORD AND APPEARED TO HAVE GOT FAIRLY ANGRY FOR A SHORT PERIOD OF TIME. HE IS CALM AGAIN, AND APPOLOGIZING. HE IS NOT TALKING ABOUT HIS HALLUCINATIONS TO ME AT THIS TIME. WILL CONTINUE TO MONITOR.
--- NOTE | 2019-08-12 10:40 | NUR ---
UPDATE BLADDER SCANNER PERFORMED AT 1030 - AND IT READ: > 999 ML. HE DENIES ANY DISCOMFORT. I GAVE HIM FLOMAX AROUND THE SAME TIME. WE AGREED TO GIVE IT ONE HOUR FOR HIM TO TRY AND VOID, AND IF NOT I WOULD CALL THE DOCTOR REGARDING CATHETERIZATION.
--- NOTE | 2019-08-12 11:46 | NUR ---
UPDATE PT REMAINS UNABLE TO VOID. HE IS ALSO GETTING SOMEWHAT RESTLESS IN BED, FIGITING, WHISPERING TO HIMSELF, ETC... I GAVE HIM 1MG ATIVAN PO PER HIS REQUEST. TO HELP CALM HIM PRIOR TO A TEMPLETON INSERTION AND HIS TELEPSYCH APPOINTMENT AT 1245. DR. CONTI ORDERED A TEMPLETON TO BE INSERTED FOR ANOTHER 24-48 HOURS, TO GIVE FLOMAX MORE TIME TO WORK. THE PT HAS BEEN COMPLAINING OF SUPRAPUBIC DISCOMFORT.
[2019-08-12 13:59] LABS: Source, Urine Catheter
[2019-08-12 14:05] LABS: Bilirubin, Urine Neg (Neg); Blood, Urine 1+ (Neg); Glucose Qualitative, Urine Neg (Neg); Ketones, Urine Neg (Neg); Leukocyte Esterase, Urine Neg (Neg); Nitrite, Urine Neg (Neg); Protein, Urine Neg (Neg); Specific Gravity, Urine 1.005 (1.003-1.022); Urobilinogen, Urine 2+ (Normal)
[2019-08-12 14:13] LABS: Appearance, Urine Clear (Clear); Color, Urine Yellow (P-Yellow)
[2019-08-12 14:14] LABS: Bacteria Rare /hpf; Red Blood Cells, Urine 0-2 /hpf (0-2); Squamous Epithelial Cells Rare /hpf (Few)
--- NOTE | 2019-08-12 14:21 | NUR ---
UPDATE 1245 - FINALLY GOT CATHETER INSERTED, IT WAS A 16fr COUDE. AFTER 2 PRIOR ATTEMPTS WITH A 16fr, AND A 14fr COUDE. URINE FOR UA WAS SENT TO LAB. HE MAY HAVE AN ENLARGED PROSTATE. 1250 - PT REPORTS RELIEF. 1300 - TELEPSYCH IN ROOM WITH PATIENT. 1345 - EMPTIED TEMPLETON BAG, 1.5L OUT. PT REPORTS FEELING A LITTLE ANXIOUS, AND WONDERS IF HE CAN LEAVE ROOM. I REMINDED HIM OF HIS CURRENT SITUATION - HE MOVES TO BED TO SLEEP. I WAS GOING TO MEDICATE FOR ANXIETY, BUT PT FELL ASLEEP SHORTLY AFTER.
--- NOTE | 2019-08-12 15:21 | NUR ---
UPDATE PLACED CALL TO DR. CONTI AND TOLD HER ABOUT PT STATING THAT HE HAS HAD DIFFICULTY URINATING FOR A FEW YEARS NOW, AND THAT WHEN HE DID URINATE IT WOULD COME OUT "...ONLY A LITTLE AT A TIME". ALONG WITH THE DIFFICULTY PLACING THE CATHETER, IT FELT LIKE THE CATHETER WAS HITTING A WALL (PRIOR TO USING THE 16fr COUDE). SHE ORDERED A PSA FOR THE MORNING, AND WE ARE CONTINUING FLOMAX. PT IS NOW CHANGED TO MODERATE SI RISK. PT CONTINUES TO DENY SUICIDAL IDEATION, AND HAS REMAINED CALM AND COOPERATIVE FOR SOME TIME NOW. HE IS ALSO NOW PCU STATUS. VITALS ARE STABLE, EVEN BP REMAINS WNL FOLLOWING METOPROLOL.
--- NOTE | 2019-08-12 18:21 | NUR ---
CALL FROM DR CARRASQUILLO: RECEIVED CALL FROM AT THIS TIME. UPON REVIEWING NOTES HAS DECIDED TO CHANGE PT MEDS AND IS PUTTING THOS ORDERS IN HIMSELF
--- NOTE | 2019-08-12 20:00 | NUR ---
ASSUMED CARE OF PT AT 1915. REPORT RECEIVED AT BEDSIDE. PT HAS JUST RECEIVED DOSE OF ATIVAN SECONDARY TO ESCALATING ANXIOUSNESS AND MILD AGITATATION. PT PRESENTS IN BED. ALERT AND ORIENTED. PLEASANT AT THIS TIME. COOPERATIVE WITH CARE AND ASSESSMENT. NO COMPLAINTS FROM PATIENT OTHER THAN DESIRE TO SMOKE. DOES HAVE NICOTINE PATCH IN PLACE. INFORMED PATIENT OF HOSPITAL NO SMOKING POLICY AND THAT HE IS ON TWO MD HOLD AND IS NOT PERMITTED TO LEAVE AT THIS TIME. WILL REVIEW CHART AND PLAN OF CARE FOR THIS PT.
--- NOTE | 2019-08-12 21:53 | NUR ---
PT MEDICATED AGAIN WITH 2 MG LORAZEPAM FOR ESCALATION. PT BECOMES VERY AGITATED THAT HE IS BEING MONITORED FOR HIS SAFETY AND THE FACT HE IS NOT ALLOWED TO GO OUTSIDE TO SMOKE. PT CURRENTLY IN BED. BED ALARM ON AT THIS TIME. WILL CONTINUE TO KEEP CURTAINS TO ROOM OPEN FOR BETTER OBSERVATION, AND REMAINS ON REMOTE VIDEO MONITORING.
--- NOTE | 2019-08-12 22:23 | NUR ---
PT HAS BEEN VERY RESTLESS. GETS OUT OF BED, AND BEGINS TO STATE HE IS LEAVING. INFORMED PT AGAIN OF HIS 2 MD HOLD, AND THAT HE WAS NOT LEGALLY PERMITTED TO LEAVE WITHOUT LAW ENFORCEMENT BEING CALLED. PT VERBALLY THREATENS TO [facility] AND THIS RN. AGAIN, REITERATED HIS LEGAL RIGHTS AND THAT HE WAS ON A 2 MD HOLD. SECURITY COMES TO ROOM TO REINFORCE PT'S RESTRICTIONS AND RIGHTS. WILL CONTINUES TO BE RESTLESS BUT DOES REMAIN IN HIS ROOM. WILL CONTINUE TO CLOSELY MONITOR PT.
--- NOTE | 2019-08-13 00:20 | NUR ---
PT CONTINUES TO BE VERY IMPULSIVE. GETS OUT OF BED QUICKLY AND IS VERY UNSTEADY ON HIS FEET. DOES BECOME IRRIATED EASILY WHEN BEING REDIRECTED. PT CURRENTLY BACK TO BED. BED ALARM HAS BEEN IN USE FOR PT SAFETY.
--- NOTE | 2019-08-13 01:51 | NUR ---
PT CURRENTLY RESTING IN BED. BED ALARM ON BED FOR PT SAFETY. NO ACTIONS OF SELF HARMING BEHAVIOUR TO NOTE. NO VERBALIZED SUICIDAL IDEATIONS.
--- NOTE | 2019-08-13 06:48 | NUR ---
PT HAS BEEN ABLE TO SLEEP FOR A PERIOD OF TIME WITHOUT TRYING TO AWAKEN AND GET OUT OF BED. WILL CONTINUE TO MONITOR PT, AND WILL REPORT OFF TO ONCOMING RN.
[2019-08-13 06:52] LABS: Prostate Specific Antigen 0.903 ng/mL (0.000-4.000)
--- NOTE | 2019-08-13 08:45 | NUR ---
ASSUMED CARE / DR CONTI: REPORT RECEIVED FROM JERMAINE Maddox RN. ASSUMED CARE OF THIS PT AT APPROX 0700. ON ASSESSMENT, THE PT IS RESTING QUITE SOUNDLY. PER REPORT, THE PT SLEPT VERY LITTLE DURING THE NIGHT. VSS & THIS RN WILL ALLOW THE PT TO REST LONG POSSIBLE. PROVIDER AT BEDSIDE TO EVAL PT. HE AWAKENS BRIEFLY & RESUMES SLEEPING. PROVIDER STS HE IS OKAY TO TRANSFER TO [facility] STATUS. SHE HAS ORDERED DUTASTERIDE IN ADDITION TO PRIOR ORDERED FLOMAX FOR DIFFICULT URINATION. SHE WOULD LIKE THE TEMPLETON TO REMAIN IN PLACE FOR APPROX 2 MORE DAYS BEFORE BEING REMOVED SO THAT MEDICATION HAS TIME TO WORK EFFECTIVELY. WILL CONTINUE TO MONITOR & UPDATE NEEDED.
--- NOTE | 2019-08-13 18:06 | NUR ---
SHIFT SUMMARY: SINCE PRIOR UPDATES, PT HAS BEEN AWAKE & PLEASANT. HE IS STILL HAVING SOME AUDITORY & VISUAL HALLUCINATIONS, TALKING TO INANIMATE OBJECTS WITHIN HIS ROOM, BUT IS FAIRLY REDIRECTABLE. HE IS ABLE TO STAND BY HIMSELF, TRANSFER TO CHAIR, & COMPLETE ADLs W/O DIFFICULTY. LS REMAIN CLEAR T/O, PT COUGHING UP SOME SPUTUM WHICH HE STS NORMAL R/T HX SMOKING. MONITOR HAS BEEN REMOVED PT IS NOW MEDICAL STATUS. PT HAVING NO GI COMPLAINTS, TOLERATING PO INTAKE WELL. TEMPLETON REMAINS PATENT/ DRAINING DARK YELLOW URINE, PO FLUID INTAKE ENCOURAGED. SKIN CONDITION OVERALL CDI. PT REPOSITIONS SELF IN BED W/O DIFFICULTY. WILL CONTINUE TO MONITOR & REPORT OFF TO ONCOMING RN.
--- NOTE | 2019-08-14 05:18 | NUR ---
SHIFT SUMMARY PATIENT SLEPT WELL THROUGH NIGHT. VERY CALM, COOPERATIVE, PLEASANT TO CONVERSE WITH. WE SHARED STORIES INVOLVING TIMES SPENT OUTDOORS, WAS REMINISCENT AND EXCITED TO SEE HIS CHILDREN AGAIN. WAS HAVING DIFFICULT TIME GETTING TO SLEEP, STATED HE WAS CRUNCHED UP, HOWEVER DENIED NEED TO LET HEAD OF BED DOWN TO GET INTO MORE COMFORTABLE POSITION, LATER AGREED AND WAS ABLE TO FALL ASLEEP AROUND 23:00 LAST NIGHT. NO FURTHER COMPLICATIONS. ASSESSMENT IS CHARTED. VSS. NO C/O PAIN. WILL CONTINUE TO MONITOR.
--- NOTE | 2019-08-14 07:08 | NUR ---
ASSUMED CARE: PT RESTING QUIETLY AT THIS TIME. NO ACUTE NEEDS OR DISTRESS NOTED AT THIS TIME.
--- NOTE | 2019-08-14 09:31 | NUR ---
Refused Safety Plan. Patient was non verbal and would only nod or shake his head. He was informed what a Safety Plan is, and was left the blank form with the crisis numbers underliined. He had shook his head no when asked if he would use a crisis line, saw anyone for mental health, and if he would like to see anyone . Charge Nurse informed to nottify this auto service writer if patient interest in talking changed. Carmen Harris M.Ed., [facility]
--- NOTE | 2019-08-14 10:11 | NUR ---
ASHWIN CAME TO SEE PT AND PT REFUSED TO DISCUSS SAFETY PLAN. ATTEMPTED TO ASK PT ABOUT THIS BUT HE CLOSED HIS EYES AND DID NOT RESPOND TO MY QUESTIONS. FOREST FIRE PREVENTION SPECIALIST STANDING IN ROOM WITH PT FOR SHOWER AT THIS TIME. INDEPENDENT AND AMBULATING WITH MINIMAL ASSISTANCE
--- NOTE | 2019-08-14 11:20 | NUR ---
COMPASS WORKER CAME TO SEE PT. WILL RELAY TO DR ART THEIR FINDINGS.
--- NOTE | 2019-08-14 11:40 | NUR ---
DR ART AT BEDSIDE AT THIS TIME. AWARE THAT PT HAS BEEN COOPERATIVE AND APPROPRIATE WITH NURSING STAFF BUT DID NOT WISH TO SPEAK WITH COMPASS OR WORK OUT A SAFETY PLAN. DR ART AWARE THAT PT HAS BEEN INDEPENDENT IN ROOM, REARRANGING FURNITURE AND MAKING BED. PT RESTING IN BED AT THIS TIME WHILE DR IS IN CHAIR AT BEDSIDE.
--- NOTE | 2019-08-14 13:51 | NUR ---
PT'S CALLED IN AND WAS GIVEN AN UPDATE ON PT'S STATUS. STATED SOME CONCERN WITH CARE PT RECIEVED ON MEDICAL FLOOR. INFORMED HER OF PT ADVOCATE NUMBER AND LEFT MESSAGE FOR PATIENT ADVOCATE WELL. NO ACUTE NEEDS OR CONCERNS AT THIS TIME.
--- NOTE | 2019-08-14 17:20 | NUR ---
SHIFT SUMMARY: PT SITTING AT SIDE OF BED EATING DINNER. CAMERA IN PLACE, MONITOR TECHS AWARE THAT PT HAS BEEN HANDED OFF TO DIFFERENT NURSE. REPORT GIVEN TO XIOMARA MONTERO. XIOMARA AWARE THAT PT IS INDEPENDENT IN ROOM WITH PLAN FOR DC IN NEXT FEW DAYS IF OK WITH DR ART. ALSO AWARE OF TEMPLETON FOR URINARY RETENTION. NO ACUTE NEEDS OR CONCERNS AT THIS TIME.
--- NOTE | 2019-08-14 18:53 | NUR ---
SHIFT SUMMARY ASSUMED CARE OF PT AT APPROX 1700. PT IS ALERT, AMBULATING IN ROOM AND MAKING HIS BED. PT HAS REMAINED CALM AND HAS EXPRESSED NO NEEDS TO STAFF AT THIS TIME. ROOM CHECKED FOR SAFETY.
--- NOTE | 2019-08-14 22:24 | NUR ---
ASSUMPTION OF CARE ASSUMED CARE OF PT @1900, PT AWAKE AND WALKING AROUND IN ROOM. PT ORIENTED TO SELF, LOCATION, EVENT AND FOLLOWING DIRECTIONS, VSS. TEMPLETON PRESENT AND DRAINING YELLOW URINE. PT AMBULATING AROUND ROOM INDEPENDENTLY. DENIES ANY PAIN, SOB, NAUSEA, OR GI ISSUES, SWALLOWS PILLS WHOLE WITH WATER.
--- NOTE | 2019-08-15 06:43 | NUR ---
SHIFT SUMMARY PT REMAINS STABLE, SLEPT T/O SHIFT. EXHIBITING SOME STRANGE BEHAVIORS, GOING THROUGH CUPBOARDS IN ROOM, REMOVING ALL PILLOWS AND LINES FROM BED, USES BATHROOM DISTRESS CALL LIGHT THEN DENIES ANY NEEDS WHEN STAFF ARRIVE TO ROOM. PT DENIES SI AND AUDITORY/VISUAL HALLUCINATIONS. PT CONTINUES TO AMBULATE IN ROOM INDEPENDENTLY.
--- NOTE | 2019-08-15 07:18 | NUR ---
ASSUMED CARE: PT INDEPENDENT IN ROOM AT THIS TIME. ON MONITOR, NO ACUTE NEEDS OR DISTRESS NOTED.
--- NOTE | 2019-08-15 09:50 | NUR ---
CALL TO DR CONTI TO CLARIFY TEMPLETON ORDERS. DR INSTRUCTED TO DO BLADDER TRAINING ON PT AT THIS TIME. PT AWARE AND AGREEABLE TO THIS
--- NOTE | 2019-08-15 10:39 | NUR ---
BLADDER TRAINING STARTED PER INSTRUCTIONS FROM DR CONTI. TEMPLETON CLAMP AND COBAN PLACED. WALKED BACK INTO ROOM AND FOUND CLAMP MISSING. SUPPORT WORKER AND RN LOOKED FOR IT ALL OVER ROOM INCLUDING IN LINENS, DRAWS, GARBAGES, AND CUPBOARDS. PT STATES HE TOOK THE CLIP OFF BUT DOES NOT SAY WHERE HE PUT IT. CALL TO LACING CUTTER WHO STATE THEY DID NOT SEE HIM REMOVE IT BUT SAYS HE WAS AROUND TOILET A LOT. BOARD LAYER AWARE. DR ATR IN TO SEE PT AND DISCUSSING PT'S CASE WITH PT'S AT THIS TIME.
--- NOTE | 2019-08-15 13:03 | NUR ---
DC'D PT'S TEMPLETON AND PT STATED IT WAS PAINFUL TO REMOVE. BALOON WAS FULLY DEFLATED WITH NO RESISTANCE. NO BLEEDING NOTED ONCE REMOVED. PT STATED IT FELT LIKE BLADDER SPASMS AND HE BECAME TEARFUL AND WAS CRYING WHEN STAFF LEFT THE ROOM. PT NOW RESTING IN BED. STATES HE DOES NOT HURT ANYMORE AND SPASMS NO LONGER PRESENT. INSTRUCTED PT TO USE URINAL WHEN NEEDING TO VOID.
--- NOTE | 2019-08-15 17:43 | NUR ---
PT'S CALLED TO HAVE PT'S KIDS WISH HIM A HAPPY BIRTHDAY. STATES THAT PT SEEMS MUCH BETTER THAN HE WAS UPON INITIAL ADMIT BUT STATES PT SEEMS CONFUSED AND SOMETIMES SAYS THINGS THAT DO NOT MAKE SENSE TO THE CONVERSATION. STATES SHE SPOKE WITH PT ADVOCATE TODAY AND WAS MADE AWARE THAT PT HAS BED ON MEDICAL FLOOR FOR THIS EVENING. PT WAS MADE AWARE THAT BED WILL BE AVAILABLE AND THAT SECURITY WILL ASSIST IN ESCORTING PER NURSING DECORATOR STORE REQUEST. NURSING DECORATOR STORE ALSO REQUESTED PT RECEIEVE A DOSE OF ZYPREXA PRIOR TO TRANSFER WELL. SECURITY AWARE OF NEED FOR ASSISTANCE WITH TRANSFER. MEDICAL FLOOR TO CALL WHEN READY FOR REPORT.
--- NOTE | 2019-08-15 18:52 | NUR ---
TRANSFER PT TRANSFERED FROM ICU TO 349 BY WHEELCHAIR ACOMPANIED BY SECURITY & [facility]NA[facility]. ENVIROMENTAL RISK ASSESSMENT FOR WAS COMPLETED BY VINNIE Ibarra RN. CALL LIGHT IN REACH. BRIANDA PT.
--- NOTE | 2019-08-15 18:59 | NUR ---
PT TRANSFERRED TO ROOM 349 VIA WHEEL CHAIR WITH BLANKET BINDER. REPORT GIVEN TO WILLIAM MONTERO. PT'S AWARE OF TRANSFER AND WAS GIVEN MEDICAL FLOOR NUMBER TO CALL FOR FURTHER UPDATES.
--- NOTE | 2019-08-16 04:36 | NUR ---
SHIFT SUMMARY AOX4. VSS. SLOW TO RESPOND TO QUESTIONS. CALM, WITHDRAWN, FLAT AFFECT. DENIES ANY CURRENT SI THOUGHTS. PLEASENT & COOPERATIVE W/CARE. SLEPT A FEW HOURS THEN WAS UP EARLY THIS AM & ASKED TO TAKE A SHOWER. DENIES PAIN, DYSPNEA, AGITATION OR ANXIETY. REPORTED NAUSEA THIS AM & WAS MEDICATED 1X W/ZOFRAN & STATED RELIEF. ON 2MD HOLD & CAMERA SUPERVISION. SHORT CALL LIGHT IN REACH. [facility].
--- NOTE | 2019-08-16 05:39 | NUR ---
AGITATED PT UP IN ROOM PACING AROUND, CLEANING, MAKING BED. REPORTS HE FEELS AGITATED, IRRITABLE & HIS BRAIN "JUST WON'T SHUT OFF." DENIES THE NEED FOR TALKING ABOUT ANYTHING. AND SAYS SOMETIMES HE JUST GETS LOST IN HIS RACING THOUGHTS. ASKED IF HE NEEDS ANYTHING TO HELP & PT AGREED TO TAKING SOME PRN ZYPREXA. WCTM. CALL LIGHT IN REACH.
[2019-08-16] MEDS ORDERED: METO25ER PO (12:30)
[2019-08-16] MEDS ORDERED: DUTA.5 PO (12:30)
[2019-08-16] MEDS ORDERED: OLAN10A MM (12:31)
[2019-08-16] MEDS ORDERED: TAMS.4ER PO (12:32)
== END 2019-08-16 13:34 | disposition home or self-care (01) | DRG 885 ==
LOC: ER 10:26 → ICUE 10:27 → MEDS 10:27 → ER 10:27 → EOR 10:27 → MEDS 10:27 → ICUE 08-10 17:15 → MEDS 08-15 18:49
PROVIDERS: Emergency Medicine; Internal Medicine; Nurse Practitioner Acute Care; ADMIT Emergency Medicine
DX: F20.9 Schizophrenia, unspecified (principal); R45.851 Suicidal ideations; F33.9 Major depressive disorder, recurrent, unspecified; F43.10 Post-traumatic stress disorder, unspecified; F17.210 Nicotine dependence, cigarettes, uncomplicated; R33.8 Other retention of urine; M19.90 Unspecified osteoarthritis, unspecified site; Z78.1 Physical restraint status; I10 Essential (primary) hypertension; E87.6 Hypokalemia
CPT/HCPCS: 36415; 51700; 51702; 51703; 70450; 80048; 80053; 81001; 81003; 82550; 83735; 84443; 85025; 87086; 99285; A9270; G0103; G0480; J1200; J1630; J1650; J2060; J2250; J2405; J3411; J7050; J7120

== ENCOUNTER 2022-03-05 17:13 | Emergency (ER) | payer OTHER ==
[~2022-03-05] VITALS: Ht 190.5 cm; Wt 104.3 kg
[~2022-03-05 17:13] MED LIST changes: +DUTA.5 PO; +METO25ER PO; +OLAN10A MM; +TAMS.4ER PO
[2022-03-05] MEDS ORDERED: Miralax17 GM PO (18:22)
== END 2022-03-05 18:39 | disposition home or self-care (01) ==
LOC: ER 17:13
DX: M54.50 Low back pain, unspecified (principal); G89.29 Other chronic pain; K59.00 Constipation, unspecified; F17.210 Nicotine dependence, cigarettes, uncomplicated; Z79.899 Other long term (current) drug therapy; Z88.0 Allergy status to penicillin; Z88.8 Allergy status to other drugs, medicaments and biological substances
CPT/HCPCS: 72100; J1885

== ENCOUNTER 2022-03-10 05:32 | Emergency (ER) | payer OTHER ==
[~2022-03-10] VITALS: Ht 190.5 cm; Wt 108.9 kg
[~2022-03-10 05:32] MED LIST changes: +Miralax17 GM PO
[2022-03-10] MEDS ORDERED: CYCL10 PO (06:59)
== END 2022-03-10 07:09 | disposition home or self-care (01) ==
LOC: ER 05:32
DX: M25.561 Pain in right knee (principal); F17.210 Nicotine dependence, cigarettes, uncomplicated; Z88.0 Allergy status to penicillin; Z88.8 Allergy status to other drugs, medicaments and biological substances; Z79.899 Other long term (current) drug therapy
CPT/HCPCS: 73560-RT; J1885

== ENCOUNTER → 2022-11-05 | Outpatient (CLI) | payer OTHER ==
[~2022-11-05] MED LIST changes: +ONDA4ODT SL; +Pepcid40 MG PO
[2022-11-05 19:34] LABS: BASOPHILS ABSOLUTE AUTO 0.11 K/mm3 (0.00-0.23); BASOPHILS PERCENT AUTO 1 % (0-2); EOSINOPHILS PERCENT AUTO 4 % (0-6); Hematocrit 47.4 % (37.0-53.0); Hemoglobin 17.4 g/dL (13.5-17.5); IMMATURE GRAN ABSOLUTE AUTO 0.03 K/mm3 (0.00-0.10); IMMATURE GRAN PERCENT AUTO 0 % (0-1); LYMPHOCYTES ABSOLUTE AUTO 2.57 K/mm3 (0.84-5.20); LYMPHOCYTES PERCENT AUTO 30 % (21-46); MONOCYTES ABSOLUTE AUTO 0.63 K/mm3 (0.16-1.47); MONOCYTES PERCENT AUTO 8 % (4-13); Mean Corpuscular HGB 29.8 pg (26.0-34.0); Mean Corpuscular HGB Conc 36.7 g/dL (31.5-36.5); Mean Corpuscular Volume 81 fL (80-100); Mean Platelet Volume 9.9 fL (9.1-12.4); NEUTROPHILS ABSOLUTE AUTO 4.81 K/mm3 (1.96-9.15); NEUTROPHILS PERCENT AUTO 57 % (41-73); Platelet Count 266 K/mm3 (150-400); RDW Coefficient Variation 12.8 % (11.7-14.2); RDW Standard Deviation 37.5 fL (35.1-46.3); Red Blood Cell Count 5.83 M/mm3 (4.30-5.90); White Blood Cell Count 8.45 K/mm3 (4.00-11.30)
[2022-11-05 20:25] LABS: Albumin, Blood 4.3 g/dL (3.4-5.0); Albumin/Globulin Ratio 1.4 (0.8-1.8); Bilirubin, Total 0.9 mg/dL (0.1-1.0); Bun/Creatinine Ratio 14.2 (12.0-20.0); Calcium, Blood 9.2 mg/dL (8.5-10.1); Creatinine, Blood 1.06 mg/dL (0.60-1.20); Globulin, Blood 3.1 g/dL (2.2-4.0); Potassium, Blood 3.8 mmol/L (3.5-5.5); Total Protein, Blood 7.4 g/dL (6.4-8.2)
== END | disposition home or self-care (01) ==
LOC: LAB 18:25 → LAB SHORT 18:25
PROVIDERS: Family Medicine
DX: R10.9 Unspecified abdominal pain (principal)
CPT/HCPCS: 80053; 82150; 83690; 85025

== ENCOUNTER 2022-11-08 15:42 | Emergency (ER) | payer OTHER ==
[~2022-11-08] VITALS: Ht 190.5 cm; Wt 124.7 kg
[~2022-11-08 15:42] MED LIST changes: -ONDA4ODT SL; -Pepcid40 MG PO
[2022-11-08 15:56] VITALS: BP 154/101
[2022-11-08 16:37] LABS: BASOPHILS ABSOLUTE AUTO 0.15 K/mm3 (0.00-0.23); BASOPHILS PERCENT AUTO 2 % (0-2); EOSINOPHILS ABSOLUTE AUTO 0.53 K/mm3 (0.00-0.68); EOSINOPHILS PERCENT AUTO 7 % (0-6); Hematocrit 46.5 % (37.0-53.0); Hemoglobin 16.7 g/dL (13.5-17.5); IMMATURE GRAN ABSOLUTE AUTO 0.02 K/mm3 (0.00-0.10); IMMATURE GRAN PERCENT AUTO 0 % (0-1); LYMPHOCYTES ABSOLUTE AUTO 2.36 K/mm3 (0.84-5.20); LYMPHOCYTES PERCENT AUTO 31 % (21-46); MONOCYTES ABSOLUTE AUTO 0.65 K/mm3 (0.16-1.47); MONOCYTES PERCENT AUTO 9 % (4-13); Mean Corpuscular HGB 29.7 pg (26.0-34.0); Mean Corpuscular HGB Conc 35.9 g/dL (31.5-36.5); Mean Corpuscular Volume 83 fL (80-100); Mean Platelet Volume 9.7 fL (9.1-12.4); NEUTROPHILS PERCENT AUTO 51 % (41-73); Platelet Count 219 K/mm3 (150-400); RDW Standard Deviation 38.5 fL (35.1-46.3); Red Blood Cell Count 5.63 M/mm3 (4.30-5.90); White Blood Cell Count 7.61 K/mm3 (4.00-11.30)
[2022-11-08 16:51] LABS: Albumin, Blood 3.9 g/dL (3.4-5.0); Albumin/Globulin Ratio 1.3 (0.8-1.8); Bilirubin, Total 0.6 mg/dL (0.1-1.0); Bun/Creatinine Ratio 10.4 (12.0-20.0); Calcium, Blood 8.5 mg/dL (8.5-10.1); Creatinine, Blood 0.97 mg/dL (0.60-1.20); Globulin, Blood 3.1 g/dL (2.2-4.0); Potassium, Blood 3.9 mmol/L (3.5-5.5)
[2022-11-08] MEDS ORDERED: ONDA4ODT SL (18:48)
[2022-11-08] MEDS ORDERED: Pepcid40 MG PO (18:48)
== END 2022-11-08 19:05 | disposition home or self-care (01) ==
LOC: ER 15:42
PROVIDERS: Student in an Organized Health Care Education/Training Program
DX: R10.10 Upper abdominal pain, unspecified (principal); Z88.0 Allergy status to penicillin; Z88.8 Allergy status to other drugs, medicaments and biological substances; Z79.899 Other long term (current) drug therapy; F17.210 Nicotine dependence, cigarettes, uncomplicated
CPT/HCPCS: 74177; 80053; 83690; 85025; 93005; 93010; 96374-59; 99284-25; A9270; J1790; Q9967

== ENCOUNTER 2022-12-17 11:11 | Emergency (ER) | payer OTHER ==
[~2022-12-17] VITALS: Ht 190.5 cm; Wt 131.5 kg
[~2022-12-17 11:11] MED LIST changes: +ONDA4ODT SL; +Pepcid40 MG PO
[2022-12-17 11:14] VITALS: BP 159/102
[2022-12-17] MEDS ORDERED: PANTOPRAZOLE SO40 M2 PO (11:32)
[2022-12-17] MEDS ORDERED: CYCL10 PO (12:02)
== END 2022-12-17 12:04 | disposition home or self-care (01) ==
LOC: ER 11:11
DX: G89.29 Other chronic pain (principal); M54.50 Low back pain, unspecified; Z87.891 Personal history of nicotine dependence; Z88.0 Allergy status to penicillin; Z88.1 Allergy status to other antibiotic agents; Z79.899 Other long term (current) drug therapy; Z88.8 Allergy status to other drugs, medicaments and biological substances
CPT/HCPCS: 99283

== ENCOUNTER → 2023-06-25 | Outpatient (CLI) | payer OTHER ==
[~2023-06-25] MED LIST changes: +PANTOPRAZOLE SO40 M2 PO
== END ==
LOC: LAB SHORT 12:20 → LAB 12:20
DX: M10.00 Idiopathic gout, unspecified site (principal)
CPT/HCPCS: 84550

== ENCOUNTER 2023-12-06 18:15 | Emergency (ER) | payer OTHER ==
[~2023-12-06] VITALS: Ht 190.5 cm; Wt 158.8 kg
[2023-12-06] MEDS ORDERED: Ondansetron HCl 2 MG / ML 2ML Vial IV ONE (18:25)
[2023-12-06] MEDS ORDERED: Aspirin 325 MG Tab PO ONE (18:25)
[2023-12-06] MEDS ORDERED: Lidocaine 2% Viscous Soln 15 ML UDC PO ONE ×2 (18:25→20:55)
[2023-12-06] MEDS ORDERED: Nitroglycerin 0.4 MG SUBL SL SCH (18:25)
[2023-12-06] MEDS ORDERED: Mag Hydrox/AL Hydrox/Simeth 30 ML UDC PO ONE ×2 (18:25→20:45)
[2023-12-06 18:48] LABS: BASOPHILS ABSOLUTE AUTO 0.06 K/mm3 (0.00-0.23); BASOPHILS PERCENT AUTO 1 % (0-2); EOSINOPHILS ABSOLUTE AUTO 0.26 K/mm3 (0.00-0.68); EOSINOPHILS PERCENT AUTO 4 % (0-6); Hematocrit 42.8 % (37.0-53.0); Hemoglobin 15.2 g/dL (13.5-17.5); IMMATURE GRAN ABSOLUTE AUTO 0.01 K/mm3 (0.00-0.10); IMMATURE GRAN PERCENT AUTO 0 % (0-1); LYMPHOCYTES ABSOLUTE AUTO 2.31 K/mm3 (0.84-5.20); LYMPHOCYTES PERCENT AUTO 32 % (21-46); MONOCYTES ABSOLUTE AUTO 0.62 K/mm3 (0.16-1.47); MONOCYTES PERCENT AUTO 9 % (4-13); Mean Corpuscular HGB 29.3 pg (26.0-34.0); Mean Corpuscular HGB Conc 35.5 g/dL (31.5-36.5); Mean Corpuscular Volume 83 fL (80-100); Mean Platelet Volume 9.7 fL (9.1-12.4); NEUTROPHILS PERCENT AUTO 55 % (41-73); Platelet Count 215 K/mm3 (150-400); RDW Coefficient Variation 12.5 % (11.7-14.2); RDW Standard Deviation 37.7 fL (35.1-46.3); Red Blood Cell Count 5.19 M/mm3 (4.30-5.90); White Blood Cell Count 7.26 K/mm3 (4.00-11.30)
[2023-12-06 19:28] LABS: Albumin, Blood 3.5 g/dL (3.4-5.0); Albumin/Globulin Ratio 1.1 (0.8-1.8); Bilirubin, Total 0.4 mg/dL (0.1-1.0); Bun/Creatinine Ratio 17.2 (12.0-20.0); Calcium, Blood 8.6 mg/dL (8.5-10.1); Creatinine, Blood 0.99 mg/dL (0.60-1.20); Globulin, Blood 3.2 g/dL (2.2-4.0); Potassium, Blood 3.9 mmol/L (3.5-5.5); Total Protein, Blood 6.7 g/dL (6.4-8.2)
[2023-12-06] MEDS ORDERED: Lidocaine 2% Viscous Soln 100 ML BTL PO ONE (20:45)
[2023-12-06] MEDS ORDERED: Famotidine 10 MG/ML 2ML Vial IV ONE (21:15)
[2023-12-06 21:30] VITALS: BP 141/98
[2023-12-06] MEDS ORDERED: Pepcid40 MG PO (21:49)
== END 2023-12-06 22:05 | disposition home or self-care (01) ==
LOC: ER 18:15
PROVIDERS: Emergency Medicine
DX: R07.9 Chest pain, unspecified (principal); I10 Essential (primary) hypertension; F17.210 Nicotine dependence, cigarettes, uncomplicated; Z88.0 Allergy status to penicillin; Z88.8 Allergy status to other drugs, medicaments and biological substances; Z79.899 Other long term (current) drug therapy
CPT/HCPCS: 71045; 80053; 83690; 83880; 84484; 85025; 93005; 93010; 96374; 96375; 99285-25; A9270; J2405

== ENCOUNTER → 2024-01-19 | Outpatient (CLI) | payer OTHER ==
[2024-01-19 19:07] LABS: BASOPHILS ABSOLUTE AUTO 0.07 K/mm3 (0.00-0.23); BASOPHILS PERCENT AUTO 1 % (0-2); EOSINOPHILS ABSOLUTE AUTO 0.19 K/mm3 (0.00-0.68); EOSINOPHILS PERCENT AUTO 3 % (0-6); Hematocrit 46.6 % (37.0-53.0); Hemoglobin 16.3 g/dL (13.5-17.5); IMMATURE GRAN ABSOLUTE AUTO 0.01 K/mm3 (0.00-0.10); IMMATURE GRAN PERCENT AUTO 0 % (0-1); LYMPHOCYTES ABSOLUTE AUTO 1.97 K/mm3 (0.84-5.20); LYMPHOCYTES PERCENT AUTO 29 % (21-46); MONOCYTES ABSOLUTE AUTO 0.46 K/mm3 (0.16-1.47); MONOCYTES PERCENT AUTO 7 % (4-13); Mean Corpuscular HGB 29.2 pg (26.0-34.0); Mean Corpuscular Volume 84 fL (80-100); NEUTROPHILS ABSOLUTE AUTO 4.05 K/mm3 (1.96-9.15); NEUTROPHILS PERCENT AUTO 60 % (41-73); Platelet Count 231 K/mm3 (150-400); RDW Coefficient Variation 12.6 % (11.7-14.2); RDW Standard Deviation 38.2 fL (35.1-46.3); Red Blood Cell Count 5.58 M/mm3 (4.30-5.90); White Blood Cell Count 6.75 K/mm3 (4.00-11.30)
[2024-01-19 19:35] LABS: Alanine Aminotransfer (ALT/SGP 26 U/L (12-78); Albumin, Blood 3.9 g/dL (3.4-5.0); Albumin/Globulin Ratio 1.2 (0.8-1.8); Alk Phos 105 U/L (50-136); Anion Gap 7 mmol/L (3-11); Aspartate Aminotrans (AST/SGOT 13 U/L (12-37); Bilirubin, Total 0.6 mg/dL (0.1-1.0); Blood Urea Nitrogen 25 mg/dL (8-24); Bun/Creatinine Ratio 20.2 (12.0-20.0); CHOL/HDL RATIO 4.6; CO2, Blood 28 mmol/L (21-32); Calcium, Blood 8.6 mg/dL (8.5-10.1); Chloride, Blood 108 mmol/L (98-108); Cholesterol 180 mg/dL (50-200); Creatinine, Blood 1.24 mg/dL (0.60-1.20); Globulin, Blood 3.2 g/dL (2.2-4.0); Glomerular Filtration Rate 74 (60-); Glucose, Blood 91 mg/dL (70-99); HDL Cholesterol 39 mg/dL (>39); Low Density Lipoprotein Chol 115 mg/dL (0-110); Potassium, Blood 4.1 mmol/L (3.5-5.5); Sodium, Blood 139 mmol/L (136-145); Total Protein, Blood 7.1 g/dL (6.4-8.2); Triglycerides 129 mg/dL (30-160); Very Low Density Lipoprot Chol 25 mg/dL (6-32)
== END ==
LOC: LAB 18:59 → LAB SHORT 18:59
PROVIDERS: Family Medicine
DX: Z51.81 Encounter for therapeutic drug level monitoring (principal); Z79.899 Other long term (current) drug therapy
CPT/HCPCS: 80053; 80061; 82306; 83036; 85025

== ENCOUNTER 2024-10-09 15:23 | Emergency (ER) | payer OTHER ==
[~2024-10-09] VITALS: Ht 190.5 cm; Wt 140.6 kg
[2024-10-09 16:57] LABS: Alanine Aminotransfer (ALT/SGP 28.0 U/L (12-78); Albumin, Blood 3.5 g/dL (3.4-5.0); Albumin/Globulin Ratio 1.1 (0.8-1.8); Anion Gap 8.0 mmol/L (3-11); Aspartate Aminotrans (AST/SGOT 17.0 U/L (12-37); Bilirubin, Total 0.6 mg/dL (0.1-1.0); Blood Urea Nitrogen 21.0 mg/dL (8-24); CO2, Blood 24.0 mmol/L (21-32); Calcium, Blood 8.3 mg/dL (8.5-10.1); Chloride, Blood 109.0 mmol/L (98-108); Creatinine, Blood 0.97 mg/dL (0.60-1.20); Globulin, Blood 3.2 g/dL (2.2-4.0); Glucose, Blood 90.0 mg/dL (70-99); Potassium, Blood 4.4 mmol/L (3.5-5.5); Sodium, Blood 137.0 mmol/L (136-145); Total Protein, Blood 6.7 g/dL (6.4-8.2)
[2024-10-09 17:07] LABS: BASOPHILS ABSOLUTE AUTO 0.05 K/mm3 (0.00-0.23); BASOPHILS PERCENT AUTO 1 % (0-2); EOSINOPHILS ABSOLUTE AUTO 0.15 K/mm3 (0.00-0.68); EOSINOPHILS PERCENT AUTO 2 % (0-6); Hematocrit 45.0 % (37.0-53.0); Hemoglobin 15.1 g/dL (13.5-17.5); IMMATURE GRAN ABSOLUTE AUTO 0.02 K/mm3 (0.00-0.10); IMMATURE GRAN PERCENT AUTO 0 % (0-1); LYMPHOCYTES ABSOLUTE AUTO 1.56 K/mm3 (0.84-5.20); LYMPHOCYTES PERCENT AUTO 24 % (21-46); MONOCYTES ABSOLUTE AUTO 0.49 K/mm3 (0.16-1.47); MONOCYTES PERCENT AUTO 7 % (4-13); Mean Corpuscular HGB Conc 33.6 g/dL (31.5-36.5); Mean Corpuscular Volume 86 fL (80-100); NEUTROPHILS ABSOLUTE AUTO 4.32 K/mm3 (1.96-9.15); NEUTROPHILS PERCENT AUTO 66 % (41-73); NRBC ABSOLUTE 0.00 K/mm3 (0.00-0.02); NRBC Auto 0.0 /100 WBC (0.0-0.2); Platelet Count 186 K/mm3 (150-400); RDW Coefficient Variation 12.9 % (11.7-14.2); RDW Standard Deviation 39.8 fL (35.1-46.3)
[2024-10-09] MEDS ORDERED: NS 1,000 ML IV SCH (17:10)
[2024-10-09] MEDS ORDERED: Ondansetron 4 MG SoluTab SL ONE (17:10)
[2024-10-09 19:17] VITALS: BP 145/82
[2024-10-09] MEDS ORDERED: Lidocaine 2% Viscous Soln 15 ML UDC PO ONE (19:55)
[2024-10-09] MEDS ORDERED: Atropine/Scopalam/Hyoscam/PB 5 ML UDC PO ONE (20:00)
[2024-10-09] MEDS ORDERED: Ketorolac Tromethamine 15mg Vial IV ONE (20:30)
[2024-10-09] MEDS ORDERED: Lidocaine 4% 1 Patch TOP ONE (20:30)
[2024-10-09] MEDS ORDERED: Dexamethasone Sod Phos 10 MG/ML 1ML VIAL IV ONE (20:30)
== END 2024-10-09 22:05 | disposition home or self-care (01) ==
LOC: ER 15:23
PROVIDERS: Student in an Organized Health Care Education/Training Program
DX: R55 Syncope and collapse (principal); M54.50 Low back pain, unspecified; G89.29 Other chronic pain; K21.9 Gastro-esophageal reflux disease without esophagitis; I44.0 Atrioventricular block, first degree; F17.210 Nicotine dependence, cigarettes, uncomplicated; Z88.0 Allergy status to penicillin; Z88.8 Allergy status to other drugs, medicaments and biological substances; Z79.899 Other long term (current) drug therapy
CPT/HCPCS: 71046; 80053; 82947; 83880; 84484; 85025; 85379; 93005; 93010; 96374; 96375; 99284-25; A9270; J1100; J1885; J7030

== ENCOUNTER → 2024-12-25 | Outpatient (CLI) | payer OTHER | LOC: LAB 16:46 → LAB SHORT 16:46 | DX: M79.675 Pain in left toe(s) (principal) | CPT/HCPCS: 84550 ==